=== PATIENT | male | born 2000 ===

== ENCOUNTER 2022-05-25 21:40 | Emergency (ER) | payer OTHER | END 2022-05-25 22:13 | disposition home or self-care (01) | LOC: LB.ED 21:40 | DX: S39.91XA Unspecified injury of abdomen, initial encounter (principal); Z88.1 Allergy status to other antibiotic agents; W23.0XXA Caught, crushed, jammed, or pinched between moving objects, initial encounter | CPT/HCPCS: 71045; 93005; 93010; 99281; 99283-25 ==